=== PATIENT | male | born 1995 | race African-American/Black ===

== ENCOUNTER 2018-08-17 12:32 | Emergency (ER) | payer OTHER ==
[~2018-08-17] VITALS: Ht 198.1 cm; Wt 81.6 kg
[2018-08-17 12:54] VITALS: BP 140/90
[2018-08-17] MEDS ORDERED: DEXAMETHASONE SOD PHOSPHATE 10 MG/ML VIAL ONE (13:16)
[2018-08-17] MEDS ORDERED: AMOX/CLAVULANATE 875 MG TABLET ONE (13:16)
[2018-08-17] MEDS ORDERED: diphenhydrAMINE HCL 50 MG CAPSULE ONE (13:16)
[2018-08-17] MEDS ORDERED: CEFTRIAXONE 1 G VIAL ONE (13:22)
[2018-08-17] MEDS ORDERED: WATER FOR INJECTION,STERILE 10 ML ONE (13:22)
[2018-08-17] MEDS ORDERED: DEXAMETHASONE SOD PHOSPHATE 4 MG/ML VIAL IM ONE (13:30)
[2018-08-17] MEDS ORDERED: diphenhydrAMINE HCL 50 MG CAPSULE PO ONE (13:30)
[2018-08-17] MEDS ORDERED: AMOX/CLAVULANATE 875 MG TABLET PO ONE (13:30)
[2018-08-17] MEDS ORDERED: CEFTRIAXONE 1 G VIAL IM ONE (13:30)
== END 2018-08-17 13:37 | disposition home or self-care (01) ==
LOC: ER 12:35
DX: K12.2 Cellulitis and abscess of mouth (principal); F12.10 Cannabis abuse, uncomplicated; Z88.6 Allergy status to analgesic agent
CPT/HCPCS: J0696; J1100; Q0163

== ENCOUNTER 2018-12-02 08:03 | Emergency (ER) | payer OTHER ==
[~2018-12-02] VITALS: Ht 185.4 cm; Wt 79.4 kg
[2018-12-02 08:08] VITALS: BP 134/88
== END 2018-12-02 08:23 | disposition home or self-care (01) ==
LOC: ER 08:04
DX: M27.2 Inflammatory conditions of jaws (principal); L03.211 Cellulitis of face; Z88.6 Allergy status to analgesic agent